=== PATIENT | male | born 1955 | race Hispanic/Latino ===

== ENCOUNTER → 2023-08-31 | Outpatient (CLI) | payer OTHER | END | disposition home or self-care (01) | LOC: SHCH 14:57 | PROVIDERS: ATTEND Internal Medicine Cardiovascular Disease | DX: I87.2 Venous insufficiency (chronic) (peripheral) (principal); R60.9 Edema, unspecified | CPT/HCPCS: 93970 ==

== ENCOUNTER → 2023-10-04 | Outpatient (CLI) | payer OTHER | END | disposition home or self-care (01) | LOC: SHCH 13:10 | PROVIDERS: ATTEND Internal Medicine Cardiovascular Disease | DX: I34.0 Nonrheumatic mitral (valve) insufficiency (principal); R60.9 Edema, unspecified; E78.5 Hyperlipidemia, unspecified; E11.9 Type 2 diabetes mellitus without complications; I11.9 Hypertensive heart disease without heart failure | CPT/HCPCS: 93306 ==

== ENCOUNTER → 2024-08-26 | Outpatient (CLI) | payer OTHER ==
[2024-08-26 13:04] LABS: CREATININE 4.5 mg/dL (0.5-1.3); POTASSIUM 5.6 mmol/L (3.5-5.1)
== END | disposition home or self-care (01) ==
LOC: LAB 09:53
PROVIDERS: ATTEND Internal Medicine Cardiovascular Disease
DX: I10 Essential (primary) hypertension (principal)
CPT/HCPCS: 36415; 80048

== ENCOUNTER → 2024-09-16 | Outpatient (CLI) | payer OTHER ==
[2024-09-16 16:45] LABS: CREATININE 4.2 mg/dL (0.5-1.3); POTASSIUM 5.4 mmol/L (3.5-5.1)
== END | disposition home or self-care (01) ==
LOC: LAB 14:29
PROVIDERS: ATTEND Internal Medicine Cardiovascular Disease
DX: N18.4 Chronic kidney disease, stage 4 (severe) (principal)
CPT/HCPCS: 36415; 80048

== ENCOUNTER → 2024-11-07 | Outpatient (CLI) | payer OTHER ==
--- NOTE | 2024-11-07 16:00 | HMCSR ---
APPROVED REPORT EXAM: Two-dimensional and M-mode echocardiogram with Doppler and color Doppler. INDICATION ICD: I42.9 Cardiomyopathy, Unspecified 2D Dimensions RVDd4.3 cmLVEF(%)28.1 (>50%)LVED Vol(simp.)229.0 mL IVSd1.0 (0.7-1.1cm)FS(%)14 %LVES Vol(simp.)147.0 mL LVDd7.3 (3.8-5.6cm)Ao Root(2D)3.6 (2.0-3.7cm)LVEF(%, simp.)36 % PWd0.9 (0.7-1.1cm)LVOT diam2.7 (1.8-2.4cm)LA ESV INDEX (BP)45.84 mL/m2 LVDs6.3 (2.5-4.0cm)IVC diam1.6 cm Aortic Valve AoV Vmax1.6 m/Harley Peak GR10.2 mmHgLVOT Vmax1.0 m/s AoV VTI0.4 mAo Mean GR6.8 mmHgLVOT VTI0.26 m CHUCHO (VMAX)3.8 cm2AVA (VTI) 3.8 cm2 Mitral Valve MV E Vmax89.0 cm/sDECEL Mftr125 ms MV A Xnbk592.7 cm/sP 1/2 T58 ms E/A ratio0.7MVA (PHT)3.8 cm2 MR Max PG154 mmHg TDI E/E' Aslcbt57.5E/E' Oldpyup84.0 Pulmonary Valve PV Vmax1.3 m/sPV VTI0.31 mPV Mean GR4 mmHg PV Peak GR6.9 mmHgPI End Myesha. Deven 0.8 cm/s Tricuspid Valve TR Vmax3.0 m/sRAP (EST) 3 lnQbHGJP86.4 mmHg TR Peak GR36.4 mmHg Left Ventricle The left ventricle is severely dilated. Paradoxical septal motion consistent with conduction abnormal ity. There is normal left ventricular wall thickness. LVEF is 35-40%. Grade 2 diastolic dysfunction. Right Ventricle The right ventricle is mildly dilated. The right ventricular systolic function is normal. Atria The left atrium is moderately dilated. The right atrium size is normal. Aortic Valve Aortic valve is trileaflet. Aortic valve leaflets are sclerotic but open well. Trace aortic regurgita tion. There is no aortic valvular stenosis. Mitral Valve The mitral valve is mildly thickened. Mitral regurgitation is mild. There is no mitral valve stenosis . Tricuspid Valve The tricuspid valve leaflets appear normal. There is mild tricuspid regurgitation. Right ventricular systolic pressure is estimated at 30-40 mmHg. Pulmonic Valve The pulmonic valve leaflets are thin and pliable; valve motion is normal. There is trace pulmonic korina vular regurgitation. Great Vessels The aortic root is normal in size. The IVC is normal in size and collapses >50% with inspiration. Pericardium No pericardial effusion. Conclusion The left ventricle is severely dilated. LVEF is 35-40%. Grade 2 diastolic dysfunction. Paradoxical septal motion consistent with conduction abnormality. Mitral regurgitation is mild. There is mild tricuspid regurgitation. Right ventricular systolic pressure is estimated at 30-40 mmHg.
== END | disposition home or self-care (01) ==
LOC: SHCH 12:41
PROVIDERS: ATTEND Internal Medicine Cardiovascular Disease
DX: I08.3 Combined rheumatic disorders of mitral, aortic and tricuspid valves (principal); I42.9 Cardiomyopathy, unspecified
CPT/HCPCS: 93306